=== PATIENT | female | born 1955 | race Asian ===

== ENCOUNTER 2021-01-30 22:26 | Emergency (ER) | payer MEDICARE, OTHER ==
[~2021-01-30] VITALS: Ht 162.6 cm; Wt 89.5 kg
[~2021-01-30 22:26] MED LIST: CETI-454 PO; GLIM4 PO; METF-446 PO; MULT-12 PO; NAPR375T6 PO; SIMV-261 PO
[2021-01-30 23:00] VITALS: BP 129/78
[2021-01-30] MEDS ORDERED: ACETAMINOPHEN 325 MG TABLET PO ONE (23:00)
== END 2021-01-30 23:27 | disposition home or self-care (01) ==
LOC: EMS 22:26
DX: H92.01 Otalgia, right ear (principal)
CPT/HCPCS: 99283

== ENCOUNTER 2021-02-06 18:59 | Emergency (ER) | payer MEDICARE, OTHER ==
[~2021-02-06] VITALS: Ht 157.5 cm; Wt 85.0 kg
[2021-02-06 23:00] VITALS: BP 118/67
== END 2021-02-07 01:00 | disposition home or self-care (01) ==
LOC: EMS 19:06
DX: H91.3 Deaf nonspeaking, not elsewhere classified (principal); H92.01 Otalgia, right ear; F41.9 Anxiety disorder, unspecified; Z91.010 Allergy to peanuts
CPT/HCPCS: 99283

== ENCOUNTER 2021-10-18 11:01 | Emergency (ER) | payer MEDICARE, OTHER ==
[~2021-10-18 11:01] MED LIST changes: +ACET650T9 PO; +CEPH500C3 PO; +FURO20TA4 PO; -GLIM4 PO; +GLIP10TA9 PO; +INSLAN SQ; +METF-1211 PO; -METF-446 PO; -MULT-12 PO; +MULT-660 PO; -NAPR375T6 PO; +OXYB5TAB20 PO
== END 2021-10-18 12:01 | disposition left against medical advice (07) ==
LOC: EMS 11:04
DX: R42 Dizziness and giddiness (principal); Z53.21 Procedure and treatment not carried out due to patient leaving prior to being seen by health care provider

== ENCOUNTER 2021-10-28 21:56 | Emergency (ER) | payer MEDICARE, OTHER ==
[~2021-10-28] VITALS: Ht 167.6 cm; Wt 80.9 kg
[2021-10-28 22:57] LABS: BASOPHILS % (AUTO) 0.7 % (0.0-2.0); HEMATOCRIT 41.5 % (36-46); HEMOGLOBIN 13.9 g/dL (12.0-16.0); LYMPHOCYTES # (AUTO) 1.8 K/uL (1.0-4.8); LYMPHOCYTES % (AUTO) 25.7 % (22.0-44.0); MEAN CORPUSCULAR HEMOGLOBIN 29.9 pg (26.0-34.0); MEAN CORPUSCULAR HGB CONC 33.5 G/dL (31.0-37.0); MEAN CORPUSCULAR VOLUME 90 fL (80-100); MONOCYTES # (AUTO) 0.5 K/uL (0.1-1.0); MONOCYTES % (AUTO) 7.2 % (2.0-9.0); NEUTROPHILS # (AUTO) 4.6 K/uL (1.8-7.7); NEUTROPHILS % (AUTO) 64.4 % (40.0-70.0); PLATELET COUNT (AUTO) 277 K/uL (150-450); RED BLOOD CELL COUNT(AUTO) 4.63 MIL/uL (4.00-5.20); RED CELL DISTRIBUTION WIDTH 13.4 % (11.5-14.5)
[2021-10-28] MEDS ORDERED: METF-1211 PO (22:57)
[2021-10-28 23:16] LABS: ALANINE AMINOTRANSFERASE 17 U/L (12-78); ALBUMIN 3.7 g/dL (3.4-5.0); ALKALINE PHOSPHATASE 107 U/L (46-116); ANION GAP 10 mmol/L (8-16); ASPARTATE AMINOTRANSFERASE 11 U/L (15-37); BILIRUBIN,TOTAL 0.2 mg/dL (0.1-1.0); CALCIUM, TOTAL 9.6 mg/dL (8.8-10.5); CARBON DIOXIDE 27 mmol/L (22-29); CHLORIDE 100 mmol/L (98-107); CREATININE 0.83 mg/dL (0.60-1.30); GLOMERULAR FILTR. RATE CALC > 60 mL/min (>60); POTASSIUM 4.2 mmol/L (3.5-5.1); SODIUM SERUM 137 mmol/L (136-145); TOTAL PROTEIN, SERUM 7.9 g/dL (6.4-8.2); UREA NITROGEN, BLOOD 12 mg/dL (7-18)
[2021-10-28 23:22] LABS: GLUCOSE,RANDOM 441 mg/dL (70-110)
[2021-10-29] MEDS: SODIUM CHLORIDE 0.9% 1,000 ML IV ONE (01:10)
[2021-10-29] MEDS: GABAPENTIN 100 MG CAPSULE PO ONE (01:10)
[2021-10-29] MEDS: INSULIN REGULAR, HUMAN 100 UNITS/ML IVP ONE (03:08)
[2021-10-29 03:11] LABS: GLUCOMETER DEV NAME(LOC) ERT.5; GLUCOSE,POINT OF CARE 400 MG/DL (70-110)
[2021-10-29 04:41] LABS: GLUCOMETER DEV NAME(LOC) ERT.5; GLUCOSE,POINT OF CARE 279 MG/DL (70-110)
[2021-10-29 08:36] LABS: GLUCOMETER DEV NAME(LOC) ERT.5; GLUCOSE,POINT OF CARE 283 MG/DL (70-110)
[2021-10-29 10:41] VITALS: BP 94/51
[2021-10-29 14:31] LABS: GLUCOMETER DEV NAME(LOC) ERT.5; GLUCOSE,POINT OF CARE 398 MG/DL (70-110)
== END 2021-10-29 13:29 | disposition home or self-care (01) ==
LOC: EMS 21:59 → MERGE 21:59 → EDBD 21:59 → EMS 10-29 13:29
DX: E11.40 Type 2 diabetes mellitus with diabetic neuropathy, unspecified (principal); E11.65 Type 2 diabetes mellitus with hyperglycemia; G92.9 Unspecified toxic encephalopathy; M79.604 Pain in right leg; M79.605 Pain in left leg
CPT/HCPCS: 36415; 80053; 82962; 83880; 85025; 93005; 93970; 96361; 96374; 99285; J1815; J7030

== ENCOUNTER 2021-10-30 08:20 | Emergency (ER) | payer MEDICARE, OTHER ==
[~2021-10-30] VITALS: Ht 165.1 cm; Wt 175.0 kg
[2021-10-30] MEDS ORDERED: SODIUM CHLORIDE 0.9% 500 ML IV ONE (09:15)
[2021-10-30 09:21] LABS: GLUCOSE,POINT OF CARE 463 MG/DL (70-110)
[2021-10-30 09:29] LABS: BASOPHILS % (AUTO) 0.8 % (0.0-2.0); EOSINOPHILS % (AUTO) 1.9 % (1.0-6.0); HEMATOCRIT 39.8 % (36-46); HEMOGLOBIN 13.5 g/dL (12.0-16.0); LYMPHOCYTES # (AUTO) 1.3 K/uL (1.0-4.8); MEAN CORPUSCULAR HGB CONC 33.9 G/dL (31.0-37.0); MEAN CORPUSCULAR VOLUME 89 fL (80-100); MONOCYTES # (AUTO) 0.3 K/uL (0.1-1.0); MONOCYTES % (AUTO) 5.8 % (2.0-9.0); NEUTROPHILS # (AUTO) 4.1 K/uL (1.8-7.7); NEUTROPHILS % (AUTO) 69.5 % (40.0-70.0); PLATELET COUNT (AUTO) 277 K/uL (150-450); RED BLOOD CELL COUNT(AUTO) 4.49 MIL/uL (4.00-5.20); RED CELL DISTRIBUTION WIDTH 13.5 % (11.5-14.5)
[2021-10-30 09:35] LABS: ACETONE,BLOOD NEGATIVE (NEGATIVE)
[2021-10-30 09:37] LABS: ALANINE AMINOTRANSFERASE 18 U/L (12-78); ALBUMIN 3.5 g/dL (3.4-5.0); ALKALINE PHOSPHATASE 102 U/L (46-116); ANION GAP 6 mmol/L (8-16); ASPARTATE AMINOTRANSFERASE 7 U/L (15-37); BILIRUBIN,TOTAL 0.3 mg/dL (0.1-1.0); CARBON DIOXIDE 28 mmol/L (22-29); CHLORIDE 101 mmol/L (98-107); CREATININE 0.81 mg/dL (0.60-1.30); GLOMERULAR FILTR. RATE CALC > 60 mL/min (>60); POTASSIUM 3.9 mmol/L (3.5-5.1); SODIUM SERUM 135 mmol/L (136-145); TOTAL PROTEIN, SERUM 7.6 g/dL (6.4-8.2); UREA NITROGEN, BLOOD 11 mg/dL (7-18)
[2021-10-30 09:40] LABS: GLUCOSE,RANDOM 486 mg/dL (70-110)
[2021-10-30] MEDS ORDERED: POTASSIUM CHLORIDE 20 MEQ ER TABLET PO ONE (10:00)
[2021-10-30] MEDS ORDERED: INSULIN REGULAR, HUMAN 100 UNITS/ML IVP ONE (10:00)
[2021-10-30 10:27] LABS: APPEARANCE,URINE CLEAR (CLEAR); BILIRUBIN,URINE NEGATIVE (NEGATIVE); GLUCOSE, URINE (UA) >=1000 mg/dL (NEGATIVE); KETONES,URINE NEGATIVE (NEGATIVE); LEUKOCYTE ESTERASE ,URINE NEGATIVE (NEGATIVE); NITRATE,URINE NEGATIVE (NEGATIVE); OCCULT BLOOD,URINE SMALL (NEGATIVE); PROTEIN,URINE NEGATIVE (NEGATIVE); UROBILINOGEN,URINE 0.2 mg/dL (<=1.0)
[2021-10-30 10:37] LABS: BACTERIA,URINE Few /HPF (None Seen); SQUAMOUS EPITHELIAL CELL,UR Few /LPF (None Seen); YEAST,URINE Few /HPF (None Seen)
[2021-10-30] MEDS ORDERED: CefTRIAXone 1 GM/DEXTROSE 50 ML IV ONE (10:45)
[2021-10-30] MEDS ORDERED: ONDANSETRON HCL 4 MG/2 ML VIAL IVP PRN ×2 (11:15→16:00)
[2021-10-30] MEDS ORDERED: 0.9% SODIUM CHLORIDE 10 ML SYRINGE IVP PRN (11:15)
[2021-10-30] MEDS ORDERED: ACETAMINOPHEN 325 MG TABLET PO PRN ×2 (11:15→16:00)
[2021-10-30 12:58] LABS: COVID AG,FIA SOURCE NASOPHARYNGEAL
[2021-10-30 13:06] LABS: GLUCOSE,POINT OF CARE 310 MG/DL (70-110)
[2021-10-30 14:59] VITALS: BP 115/62
[2021-10-30] MEDS ORDERED: DEXTROSE 50%-WATER 25 GM/50 ML SYRINGE IVP PRN (15:45)
[2021-10-30] MEDS ORDERED: INSULIN LISPRO 100 UNITS/ML SQ PRN (15:45)
[2021-10-30] MEDS ORDERED: HYDROCODONE/ACETAMINOPHEN 5-325 MG TABLET PO PRN (16:00)
[2021-10-30] MEDS ORDERED: ZOLPIDEM TARTRATE 5 MG TABLET PO PRN (16:00)
[2021-10-30] MEDS ORDERED: MORPHINE SULFATE 2 MG/ML SYRINGE IVP PRN (16:00)
[2021-10-30] MEDS ORDERED: MAGNESIUM HYDROXIDE SUSPENSION 30 ML UDCUP PO PRN (16:00)
[2021-10-30] MEDS ORDERED: ALBUTEROL SULFATE 2.5 MG/0.5 ML NEB SOLUTION NEB PRN (16:00)
[2021-10-30] MEDS ORDERED: HEPARIN SODIUM,PORCINE 5,000 UNITS/ML VIAL SQ SCH (16:00)
[2021-10-30] MEDS ORDERED: IPRATROPIUM BROMIDE 0.5 MG/2.5 ML NEB SOLUTION NEB PRN (16:00)
[2021-10-30] MEDS ORDERED: BISACODYL 10 MG RECTAL RECTAL SUPPOSITORY PR PRN (16:00)
[2021-10-30] MEDS ORDERED: GlipiZIDE 10 MG TABLET PO SCH (17:00)
[2021-10-30] MEDS ORDERED: SIMVASTATIN 40 MG TABLET PO SCH (21:00)
[2021-10-30] MEDS ORDERED: DOCUSATE SODIUM 100 MG CAPSULE PO SCH (21:00)
[2021-10-30] MEDS ORDERED: INSULIN GLARGINE,HUM.REC.ANLOG 100 UNITS/ML SQ SCH (21:00)
[2021-10-30] MEDS ORDERED: OXYBUTYNIN CHLORIDE 5 MG TABLET PO SCH (21:00)
[2021-10-31] MEDS ORDERED: FUROSEMIDE 20 MG TABLET PO SCH (09:00)
[2021-10-31] MEDS ORDERED: CETIRIZINE HCL 10 MG TABLET PO SCH (09:00)
[2021-10-31] MEDS ORDERED: PANTOPRAZOLE SODIUM 40 MG/VIAL IVP SCH (09:00)
== END 2021-10-30 18:47 | disposition home or self-care (01) ==
LOC: EMS 08:23
DX: N39.0 Urinary tract infection, site not specified (principal); E11.65 Type 2 diabetes mellitus with hyperglycemia; Z79.4 Long term (current) use of insulin; Z79.84 Long term (current) use of oral hypoglycemic drugs; Z20.822 Contact with and (suspected) exposure to COVID-19
CPT/HCPCS: 36415; 80053; 81001; 82009; 82962; 85025; 87086; 87426; 96365; 96375; 99284; J0696; J1815; J7040; 96361